=== PATIENT | female | born 1970 | race Caucasian/White ===

== ENCOUNTER → 2024-02-20 15:55 | Outpatient (REF) | payer OTHER, SELFPAY | LOC: RCS 15:55 | PROVIDERS: ATTENDING PHYSICIAN Internal Medicine | DX: R00.2 Palpitations (principal); Z85.3 Personal history of malignant neoplasm of breast; Z92.21 Personal history of antineoplastic chemotherapy; Z92.3 Personal history of irradiation | CPT/HCPCS: 93306 ==

== ENCOUNTER → 2024-03-19 14:52 | Outpatient (REF) | payer OTHER, SELFPAY | LOC: HWRAD 14:52 | PROVIDERS: ATTENDING PHYSICIAN Nurse Practitioner | DX: M54.9 Dorsalgia, unspecified (principal) | CPT/HCPCS: 72072 ==

== ENCOUNTER → 2024-11-09 16:55 | Outpatient (REF) | payer OTHER, SELFPAY | LOC: HWRAD 16:55 | PROVIDERS: FAMILY PHYSICIAN Nurse Practitioner Adult Health | DX: R05.3 Chronic cough (principal) | CPT/HCPCS: 71046 ==

== ENCOUNTER → 2025-01-21 09:31 | Outpatient (REF) | payer OTHER, SELFPAY | LOC: HWRAD 09:31 | PROVIDERS: ATTENDING PHYSICIAN Nurse Practitioner Adult Health | DX: K59.00 Constipation, unspecified (principal); R10.9 Unspecified abdominal pain; R14.0 Abdominal distension (gaseous) | CPT/HCPCS: 74018 ==

== ENCOUNTER 2025-01-24 15:11 | Emergency (ER) | payer OTHER, SELFPAY ==
[2025-01-24 15:13] VITALS: BP 117/72
[2025-01-24 15:37] LABS: Urine Albumin Negative (Neg - Trace); Urine Bilirubin Negative (Negative); Urine Character Clear (Clear); Urine Color Yellow; Urine Glucose Negative (Negative); Urine Ketone Negative (Negative); Urine Leukocyte 2+ (Negative); Urine Nitrite Negative (Negative); Urine Occult Blood 2+ (Negative); Urine Urobilinogen Negative (Neg - 1+)
[2025-01-24 15:39] LABS: % Basophils 0.7 % (0-2); % Eosinophils 2.7 % (0-6); % Immature Granulocytes 0.4 % (0-0.5); % Lymphocytes 31.5 % (20.5-51.1); % Monocytes 5.3 % (1.7-9.3); % Neutrophils 59.4 % (42.2-75.2); Absolute Basophils 0.1 10^3/uL (0-0.2); Absolute Eosinophils 0.3 10^3/uL (0-0.7); Absolute Monocytes 0.5 10^3/uL (0.1-0.6); Absolute Neutrophils 5.7 10^3/uL (1.4-6.5); Hemoglobin 11.9 g/dL (12.0-16.0); Mean Corpuscular Hgb 27.5 pg (27.0-31.0); Mean Platelet Volume 9.5 fL (7.4-10.4); Nucleated Red Blood Cells % 0 %; Platelet Count 323 10^3/uL (130-400); Red Blood Cell Count 4.32 10^6/uL (4.20-5.40); Red Cell Dist. Width 13.4 % (11.5-14.5); White Blood Cell Count 9.6 10^3/uL (4.8-10.8)
[2025-01-24 15:46] LABS: INR 0.89; PT 12.4 Sec (11.4-14.6)
[2025-01-24 15:50] LABS: ALT (SGPT) 30 U/L (0-35); AST (SGOT) 31 U/L (14-36); Albumin 4.9 g/dl (3.5-5.0); Alkaline Phosphatase 82 U/L (38-126); Blood Urea Nitrogen 22 mg/dl (7-17); Carbon Dioxide 24 mmol/L (22-30); Chloride 108 mmol/L (98-107); Glucose 105 mg/dl (70-99); Lipase 103 U/L (23-300); Potassium 4.3 mmol/L (3.5-5.1); Sodium 141 mmol/L (135-145); Total Bilirubin 0.6 mg/dl (0.2-1.3); Total Protein 8.2 g/dl (6.3-8.2); eGFR > 60.00
[2025-01-24 16:01] LABS: Troponin I < 0.012 ng/ml
[2025-01-24 16:07] LABS: Urine Bacteria Few (Negative)
[2025-01-24 18:47] VITALS: BP 134/76
[2025-01-24 18:48] VITALS: BP 134/76
[2025-01-24 19:00] VITALS: BP 141/80
--- NOTE | 2025-01-24 19:01 | ED.GENMED ---
History of Present Illness
General
Chief Complaint: Abdominal Pain
Time Seen by Provider: 01/24/25 18:52
History of Present Illness
History of Present Illness:
Patient is a 54-year-old woman with history of breast cancer in remission presenting to the emergency department with abdominal bloating and decreased p.o. Patient states for the past few weeks has been having bloating and decreased p.o. as she
feels full. She has been drinking less so she does feel dizzy especially with movement. She is extremely concerned that her cancer has come back. She did have an MRI of her abdomen in September as there was some spots on her pancreas/spleen that
they were concerned about but everything has been stable. Patient denies any fevers or chills. No weight loss. She does have multiple hernias as well as a Patrizia flap in 2019. No history of obstruction. She also states that she has had recurrent
UTIs. Currently her only symptom is suprapubic pressure. No dysuria.
Past History
Past History
ED Past Medical History: Cancer
ED Past Surgical History: Gynecological and Other (Hernia repair, breast reconstruction)
Social History
Tobacco: Non-smoker
Alcohol: None
Drug: None
Personal:
Living: with family
Employment: Employed (Teacher)
Family History
Family History: Other (Mother and sister have Graves' disease. kidney stones, colon cancer)
Phy Exam
Physical Exam
Physical Exam:
GENERAL: in no acute distress
HEENT: normocephalic, extraocular movements intact, dry oral mucosa
NECK: normal inspection
RESPIRATORY: no respiratory distress, clear to auscultation bilaterally
CARDIOVASCULAR: regular rate and rhythm
ABDOMEN/: soft, non-distended, diffuse tender to palpation, no rebound or guarding
EXTREMITIES: non-tender, no edema/swelling
NEUROLOGIC: awake and alert, moves all extremities
SKIN: warm
Course
Orders/Labs/Results
Orders:
Orders
01/24/25 15:18
EKG [Electrocardiogram (*1)] Urgent
Reason for Study: Vertigo / Dizzy
01/24/25 15:19
EKG- Treatment ONCE
01/24/25 15:26
Complete Blood Count/With Diff Urgent
Comprehensive Metabolic Panel Urgent
Lipase Urgent
Prothrombin Time Urgent
Troponin I Urgent
Urinalysis Reflex To Culture Urgent
Date Specimen was Collected: 01/24/25
Time Specimen was Collected: 15:21
Urine Microscopic Reflex Cult Urgent
Urine Culture Urgent
MIKAELA Source: U
Specimen Description:
Date Specimen was Collected: 01/24/25
Time Specimen was Collected: 15:21
01/24/25 19:01
CT Abd/pelvis W Iv Cont Urgent
Comment:
Reason For Exam: diffuse abd pain
0.9% Sodium Chloride 1000 ml [Nss] 1,000 ml IV BOLUS
01/24/25 20:05
Nitrofurantoin Monohydrate [Macrobid] 100 mg PO NOW STA
Abnormal Lab Results
01/24/25
15:26
Hgb 11.9 L g/dL
(12.0-16.0)
Hct 35.0 L %
(37.0-47.0)
Chloride 108 H mmol/L
(98-107)
BUN 22 H mg/dl
(7-17)
Glucose 105 H mg/dl
(70-99)
Ur Occult Blood Reflex 2+ A
(Negative)
Leukocyte Esterase Rfl 2+ A
(Negative)
Urine RBC 3-6 A /HPF
(0-2)
Urine WBC (Reflex) 11-15 A /HPF
(0-5)
Urine Bacteria (Reflex) Few A
(Negative)
01/24/25 15:26
01/24/25 15:26
Vital Signs
Initial and Last Documented VS:
Initial Vital Signs
Temp Pulse Resp BP Pulse Ox
98.0 F 93 17 117/72 99
01/24/25 15:13 01/24/25 15:13 01/24/25 15:13 01/24/25 15:13 01/24/25 15:13
Last Documented Vital Signs
Temp Pulse Resp BP Pulse Ox
98.0 F 82 19 134/76 100
01/24/25 15:13 01/24/25 18:48 01/24/25 18:48 01/24/25 18:48 01/24/25 18:48
MDM/Problems Addressed
Differential Diagnosis Includes:
54-year-old woman presenting to the emergency department with abdominal discomfort, bloating and decreased p.o. as well as some dizziness. Vitals unremarkable exam does show diffuse tenderness as well as dry oromucosa. Differential is broad but
consists of malignancy versus urine infection. Considered acute abdomen such as obstruction though less likely. Dizziness is likely secondary to dehydration. History exam not consistent with posterior CVA or cardiac arrhythmia. Blood work
obtained prior to my evaluation is generally unremarkable. Will give IV fluids and obtain CT scan. Urine does appear infected.
*Critical Care Note
Total Time (30-74mins, 75-104mins- exclusive of procedures): Not Applicable
Update Note
Update Note:
CT scan per my interpretation with no signs of obstruction. Per the official read no acute process. After shared decision making given patient's allergies we will treat UTI with Macrobid. Patient will follow-up with GI as already scheduled next
week. Will discharge at this time.
ED Attending Note
-
Portions of this chart may have been created with voice recognition software.� Occasional wrong word or��sound alike� substitutions may have occurred due to the inherent limitations of voice recognition software.
Discharge Plan
Departure
Patient Disposition: Home (Routine Discharge)
Date of Disposition: 01/24/25
Time of Disposition: 20:06
Patient with high blood pressure during this ER visit?: No
Discharge Problem:
UTI (urinary tract infection)
Instructions: Urinary tract infection in adults - ED discharge instructions
Prescriptions:
New
nitrofurantoin monohyd/m-cryst [Macrobid] 100 mg capsule
100 mg PO BID 5 Days Qty: 10 0RF
No Action
Control Pills
1 tab PO DAILY
prednisone 20 MG tablet
20 mg PO BID Qty: 10 0RF
famotidine 20 MG tablet
20 mg PO BID Qty: 10 0RF
epinephrine [EpiPen] 0.3 MG/0.3/SYRINGE auto-injector
0.3 mg IM ONCE Qty: 3 1RF
tamsulosin 0.4 MG capsule
0.4 mg PO DAILY Qty: 10 0RF
oxycodone-acetaminophen 5 MG/325 MG tablet
1 tab PO Q4HPRN PRN (Reason: pain) Qty: 10 0RF
Activity Restrictions/Additional Instructions:
You were seen in the Emergency Department today for abdominal bloating and decreased oral intake. While you were here we performed blood work, which was reassuring. You are found to have a UTI. Please take antibiotic as prescribed. Please
follow-up with your GI team as already scheduled.
We would like for you to follow up with your primary care physician for further evaluation. If you experience fever, worsening of your symptoms, or develop any other new or concerning symptoms, please return to the Emergency Department immediately.
Please see the attached sheet for additional information.
Interventions
Interventions:
*Risk Screen - Suicide Last Done: 01/24/25 15:17
*General Assessment Last Done: 01/24/25 15:17
*Neglect/Abuse Screening Last Done: 01/24/25 15:17
*ED- Fall Risk Assessment Last Done: 01/24/25 18:42
*ED COVID-19 Vaccine History Last Done: 01/24/25 15:17
JA-Okrbyt-Jgzsfpvfdu Assessment Last Done: 01/24/25 18:48
Discharge Date and Time
Print Language: VENEZUELAN
[2025-01-24] MEDS: NSS 1000 IV (19:19)
[2025-01-24] MEDS: MACROBID 100 MG PO (20:15)
== END 2025-01-24 20:34 | disposition home or self-care (01) ==
LOC: EMR 15:11
PROVIDERS: Emergency Medicine; EMERGENCY PHYSICIAN Student in an Organized Health Care Education/Training Program; FAMILY PHYSICIAN Nurse Practitioner Adult Health
DX: N39.0 Urinary tract infection, site not specified (principal); R42 Dizziness and giddiness; Z85.3 Personal history of malignant neoplasm of breast
CPT/HCPCS: 96360; 99284; 74177; 80053; 81003; 81015; 83690; 84484; 85025; 85610; 87077; 87086; 93005; Q9967

== ENCOUNTER → 2025-02-08 08:12 | Outpatient (REF) | payer OTHER, SELFPAY | LOC: HWRAD 08:12 | PROVIDERS: ATTENDING PHYSICIAN Nurse Practitioner Adult Health | DX: K59.00 Constipation, unspecified (principal); R10.9 Unspecified abdominal pain; R14.0 Abdominal distension (gaseous); Z85.3 Personal history of malignant neoplasm of breast; Z80.0 Family history of malignant neoplasm of digestive organs | CPT/HCPCS: 76830; 76856 ==

== ENCOUNTER 2025-04-15 06:32 | Day surgery (SDC) | payer OTHER, SELFPAY | END 2025-04-15 12:11 | disposition home or self-care (01) | LOC: GI 06:32 | PROVIDERS: ATTENDING PHYSICIAN Internal Medicine | DX: K52.9 Noninfective gastroenteritis and colitis, unspecified (principal); K62.1 Rectal polyp; K63.89 Other specified diseases of intestine; K64.9 Unspecified hemorrhoids; D64.9 Anemia, unspecified; K29.80 Duodenitis without bleeding; K22.89 Other specified disease of esophagus; Z92.21 Personal history of antineoplastic chemotherapy; Z80.0 Family history of malignant neoplasm of digestive organs | CPT/HCPCS: 45380; 43239; 88305; 88342 ==

== ENCOUNTER → 2025-06-08 15:32 | Outpatient (REF) | payer OTHER, SELFPAY | LOC: HWRAD 15:32 | PROVIDERS: ATTENDING PHYSICIAN Nurse Practitioner Adult Health | DX: R06.02 Shortness of breath (principal); R05.1 Acute cough | CPT/HCPCS: 71046 ==